=== PATIENT | female | born 1995 | race African-American/Black ===

== ENCOUNTER → 2023-05-20 | Outpatient (CLI) | payer OTHER | LOC: M LAB 11:29 → EDSEX 11:29 | PROVIDERS: ATTEND Physician Assistant | DX: Z34.91 Encounter for supervision of normal pregnancy, unspecified, first trimester (principal) ==

== ENCOUNTER → 2023-05-24 | Outpatient (REF) | payer OTHER | LOC: M SFHCWAGY 11:03 | PROVIDERS: ATTEND Specialist | DX: N92.6 Irregular menstruation, unspecified (principal) ==

== ENCOUNTER → 2023-05-29 | Outpatient (CLI) | payer OTHER | LOC: M PLALAB 14:48 | PROVIDERS: ATTEND Specialist | DX: N92.6 Irregular menstruation, unspecified (principal) ==